=== PATIENT | female | born 1985 | race Caucasian/White ===

== ENCOUNTER 2019-02-25 02:55 | Outpatient (CLI) | payer OTHER ==
[2019-02-25 03:43] VITALS: BP 125/85; PULSE 101; RESP 18; TEMP 98.4
--- NOTE | 2019-02-25 05:04 | P.MSEPDOC ---
Presenting Problems - Arrival Data Date of Arrival on Unit: 02/25/19 Time of Arrival on Unit: 03:04 Mode of Transport: Ambulatory - Complaint OB-Reason for Admission/Chief Complaint: Other Comment: psych eval, med refill Medical History - Information : 6 Para: 3 Term: 3 : 0 Abortions: Spontaneous or Elective: 2 Number of Living Children: 3 - Gestational Age Gestational Age by JETHRO (wks/days): 27 Weeks and 3 Days - History Complications: No Care, Smoker Review of Systems - Review of Systems Constitutional: No problems Breast: No problems ENT: No problems Cardiovascular: No problems Respiratory: No problems Gastrointestinal: No problems Genitourinary: No problems Musculoskeletal: No problems Neurological: No problems Skin: No problems Vital Signs - Temperature Temperature: 98.4 F Temperature Source: Oral - Pulse Right Pulse Rate: 101 Pulse Assessment Method: Pulse Oximetry - Respirations Respiratory Rate: 18 - Blood Pressure Right Arm Blood Pressure: 125/85 Blood Pressure Mean: 98 Blood Pressure Source: Automatic Cuff Medical Screen Scoring (Pre) - Cervical Exam Dilation: Exam Deferred Effacement: Exam Deferred - Uterine Contractions Frequency: N/A Duration: N/A Intensity: N/A - Maternal Vital Signs Maternal Temperature: N/A Maternal Blood Pressure: N/A Signs of Preeclampsia: N/A Maternal Respirations: N/A - Maternal Trauma Maternal Trauma: N/A - Assessment - Baby A Baseline FHR: 140 Heart Rate - NICHD Category: Category I (Normal) = 0 NST: Reactive Position: N/A - Total Score - Baby A Total Score - Baby A: 0 - Total Score - Baby B Total Score - Baby B: 0 - Total Score - Baby C Total Score - Baby C: 0 - Level of Risk - Baby A Level of Risk - Baby A: Low (0-5) - Level of Risk - Baby B Level of Risk - Baby B: Low (0-5) - Level of Risk - Baby C Level of Risk - Baby C: Low (0-5) Medical Screen Scoring (Post) - Cervical Exam Dilation: Exam Deferred Effacement: Exam Deferred - Uterine Contractions Frequency: N/A Duration: N/A Intensity: N/A - Maternal Vital Signs Maternal Temperature: N/A Maternal Blood Pressure: N/A Signs of Preeclampsia: N/A Maternal Respirations: N/A - Maternal Trauma Maternal Trauma: N/A - Assessment - Baby A Heart Rate: 130 Heart Rate - NICHD Category: Category I (Normal) = 0 NST: Reactive - Total Score Total Score - Baby A: 0 Total Score - Baby B: 0 Total Score - Baby C: 0 - Post Treatment Level of Risk Post Treatment Level of Risk - Baby A: Low (0-5) Physician Notification (Post) - Physician Notified Physician Notified Date: 02/25/19 Physician Notified Time: 03:55 Physician/Practitioner Notified:: Dr Rodríguez - Notification Comment Comment: reported on pts c/o wanting to be seen by EPS, wanting a medication refill, having anxiety, wanting community resources. reported that pt currently denies any OB complaints or difficulties. abd is soft. no bleeding or leaking. no cntrx, no cramping. +fm. orders to d/c home, may be seen in ER for further eval if needed Disposition - Disposition OB Disposition: Transfer to other dept./facility, Discharge to home Discharge Date: 02/25/19 Discharge Time: 04:40 I agree with the RN Medical Screening Exam: Yes Physician's MSE Comment: Patient seeking psychiatric support, asking for community resources. No issues [id number] at this time. Will utilize services through the emergency room at this time. Patient denies suicidal or homicidal ideation. Risk & Benefit of care provided described in d/c instruction: Yes Diagnosis: RELATED CONDITIONS, UNSPECIFIED, SECOND TRIMESTER
== END 2019-02-25 04:40 | disposition home or self-care (01) ==
LOC: FBPOP 02:55
PROVIDERS: ATTEND Obstetrics & Gynecology
DX: O26.92 Pregnancy related conditions, unspecified, second trimester (principal); Z3A.27 27 weeks gestation of pregnancy
CPT/HCPCS: 99213

== ENCOUNTER 2019-02-25 04:39 | Emergency (ER) | payer OTHER ==
[2019-02-25 04:46] VITALS: BP 119/86; PULSE 92; TEMP 97.7
--- NOTE | 2019-02-25 05:09 | ED ---
Medical Clearance HPI - General Chief complaint: Medical Clearance Stated complaint: Psych Med Refill Time Seen by Provider: 02/25/19 04:47 Source: patient Mode of arrival: ambulatory - History of Present Illness Initial comments: Dictation was produced using [employer] dictation software. please excuse any grammatical, word or spelling errors. Chief Complaint: 33-year-old female presents with request for Wellbutrin. History of Present Illness: Patient's 33-year-old female she is 29 weeks . She presents emergency department for possible prescription for Wellbutrin. Patient states she's been on for the last 5 years. Patient states she's also been on during this . She states that her BARREL ENDSHAKER ADJUSTER prescribed to her. Patient is log personal stress recently including fostering children after a long case with CPS. She states that her children's father was recently incarcerated. She was up and they've and delivery for surgical contractions. She was discharged from there came to our emergency department for possible prescription. Patient is currently homeless [place] She is currently homeless. The ROS documented in this emergency department record has been reviewed and confirmed by me. Those systems with pertinent positive or negative responses have been documented in the HPI. All other systems are other negative and/or noncontributory. PHYSICAL EXAM: General Impression: Alert and oriented x3, not in acute distress HEENT: Normocephalic atraumatic, extra-ocular movements intact, pupils equal and reactive to light bilaterally, mucous membranes moist. Cardiovascular: Heart regular rate and rhythm, S1&S2 audible, no murmurs, rubs or gallops Chest: Lungs clear to auscultation bilaterally, no rhonchi, no wheeze, no rales Abdomen: Bowel sounds present, abdomen soft, non-tender, non-distended, no organomegaly, uterus appears consistent with stated age Musculoskeletal: Pulses present and equal in all extremities, no peripheral edema Motor: no focal deficits noted Neurological: CN II-XII grossly intact, no focal motor or sensory deficits noted Skin: Intact with no visualized rashes Psych: Normal affect and mood ED course: 33-year-old female who is homeless requesting anxiolytic prescription medication. Signs upon arrival are within acceptable limits. His discussed with patient that Wellbutrin is a class C medication that may currently be harmful to the baby. She is told that I do not fill comfortable prescribing this but she is more than welcome to follow-up with assistant boys track coach to see if they're comfortable prescribing that to her. She also requests that we check her urine. Laboratory evaluation obtained showing no acute processes. D iscussed patient that there is no medication that is completely safe entry anxiety and . Patient understands this. She is given referral to assistant boys track coach. Home medications: Home Medications Medication Instructions Recorded Confirmed Multivitamin [Multivitamins Adult 1 each PO DAILY 02/25/19 02/25/19 Gummies] Potassium 99 mg PO DAILY 02/25/19 02/25/19 Allergies/Adverse reactions: Allergies Allergy/AdvReac Type Severity Reaction Status Date / Time No Known Allergies Allergy Verified 02/25/19 03:29 Review of Systems ROS Statement: Those systems with pertinent positive or pertinent negative responses have been documented in the HPI. ROS Other: All systems not noted in ROS Statement are negative. Past Medical History Additional Past Medical History / Comment(s): lupus, endimetriosis, carpal tunnel, fibromyalgia, memory problems History of Any Multi-Drug Resistant Organisms: None Reported Past Surgical History: Section, Cholecystectomy Past Psychological History: ADD/ADHD, Bipolar, PTSD Smoking Status: Current every day smoker Past Alcohol Use History: Rare Past Drug Use History: None Reported General Exam Limitations: no limitations Course Vital Signs 02/25/19 04:41 Temperature 97.7 F Pulse Rate 92 Respiratory 20 Rate Blood Pressure 119/86 O2 Sat by Pulse 98 Oximetry Medical Decision Making - Lab Data Lab Results 02/25/19 Range/Units 05:15 Urine Color Light Yellow Urine Appearance Cloudy H (Clear) Urine pH 6.5 (5.0-8.0) Ur Specific Reading 1.013 (1.001-1.035) Urine Protein Negative (Negative) Urine Glucose (UA) Negative (Negative) Urine Ketones Negative (Negative) Urine Blood Negative (Negative) Urine Nitrite Negative (Negative) Urine Bilirubin Negative (Negative) Urine Urobilinogen <2.0 (<2.0) mg/dL Ur Leukocyte Esterase Negative (Negative) Urine RBC 1 (0-5) /hpf Ur Squamous Epith Cells 2 (0-4) /hpf Amorphous Sediment Rare H (None) /hpf Urine Bacteria Rare H (None) /hpf Urine Mucus Rare H (None) /hpf Disposition Clinical Impression: Anxiety Disposition: HOME SELF-CARE Condition: Good Instructions (If sedation given, give patient instructions): Anxiety (ED) Is patient prescribed a controlled substance at d/c from ED?: No Referrals: Mona Rodríguez MD [STAFF PHYSICIAN] - 1-2 days Time of Disposition: 05:54
[2019-02-25 05:32] LABS: Amorphous Sediment,Urine Rare /hpf; Appearance,Urine Cloudy (Clear); Bacteria,Urine Rare /hpf; Bilirubin,Urine Negative (Negative); Blood,Urine Negative (Negative); Color,Urine Light Yellow; Glucose,Urine (UA) Negative (Negative); Ketones,Urine Negative (Negative); Leukocyte Esterase,Urine Negative (Negative); Mucus,Urine Rare /hpf; Nitrite,Urine Negative (Negative); PH, Urine 6.5 (5.0-8.0); Protein,Urine Negative (Negative); RBC,Urine 1 /hpf (0-5); Specific Gravity,Urine 1.013 (1.001-1.035); Squamous Epithelial Cell,Urine 2 /hpf (0-4); Urobilinogen,Urine <2.0 mg/dL (<2.0)
[2019-02-25 05:58] VITALS: RESP 18
== END 2019-02-25 05:56 | disposition home or self-care (01) ==
LOC: EC 04:39
DX: O99.343 Other mental disorders complicating pregnancy, third trimester (principal); F41.9 Anxiety disorder, unspecified; O99.333 Smoking (tobacco) complicating pregnancy, third trimester; F17.200 Nicotine dependence, unspecified, uncomplicated; Z59.0 Homelessness; Z98.890 Other specified postprocedural states; Z3A.29 29 weeks gestation of pregnancy
CPT/HCPCS: 81001; 87086; 99213; 99283

== ENCOUNTER 2019-05-14 14:58 | Emergency (ER) | payer OTHER ==
[2019-05-14 15:19] VITALS: RESP 18
[2019-05-14] MEDS ORDERED: MORPHINE SULFATE 4 MG/ML SYRINGE IV STA (16:43)
[2019-05-14] MEDS ORDERED: ONDANSETRON 4 MG/2 ML VIAL IVP STA (16:43)
[2019-05-14] MEDS ORDERED: SODIUM CHLORIDE 0.9% 1,000 ML IV STA (16:43)
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
[2019-05-14 17:31] LABS: Basophils # (A) 0.1 k/uL (0-0.2); Basophils % (A) 1 %; Eosinophils # (A) 0.2 k/uL (0-0.7); Eosinophils % (A) 2 %; HCT 36.4 % (34.0-46.0); HGB 12.2 gm/dL (11.4-16.0); Lymphocytes # (A) 2.9 k/uL (1.0-4.8); Lymphocytes % (A) 25 %; MCH 30.7 pg (25.0-35.0); MCHC 33.5 g/dL (31.0-37.0); MCV 91.8 fL (80.0-100.0); Mean Platelet Volume 5.4; Monocytes # (A) 0.4 k/uL (0-1.0); Monocytes % (A) 4 %; Neutrophils # (A) 7.6 k/uL (1.3-7.7); Neutrophils % (A) 66 %; Platelet Count 358 k/uL (150-450); RBC 3.97 m/uL (3.80-5.40); RDW 13.4 % (11.5-15.5); WBC 11.5 k/uL (3.8-10.6)
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
[2019-05-14 17:37] LABS: ALT 41 U/L (9-52); AST 61 U/L (14-36); African American GFR (CKD) >90 (>60 ml/min/1.73 sqM); Albumin 4.3 g/dL (3.5-5.0); Alkaline Phosphatase 150 U/L (38-126); Amylase 47 U/L (30-110); Anion Gap 9 mmol/L; Blood Urea Nitrogen 10 mg/dL (7-17); Calcium 9.5 mg/dL (8.4-10.2); Carbon Dioxide 25 mmol/L (22-30); Chloride 107 mmol/L (98-107); Creatine Kinase 176 U/L (30-135); Glucose 79 mg/dL (74-99); Magnesium 1.9 mg/dL (1.6-2.3); Potassium 3.6 mmol/L (3.5-5.1); Sodium 141 mmol/L (137-145); Total Bilirubin 0.4 mg/dL (0.2-1.3); Total Protein 8.2 g/dL (6.3-8.2)
[2019-05-14 17:44] LABS: Appearance,Urine Clear (Clear); Bilirubin,Urine Negative (Negative); Blood,Urine Negative (Negative); Color,Urine Light Yellow; Glucose,Urine (UA) Negative (Negative); Ketones,Urine Negative (Negative); Leukocyte Esterase,Urine Negative (Negative); Nitrite,Urine Negative (Negative); PH, Urine 6.5 (5.0-8.0); Protein,Urine Negative (Negative); Specific Gravity,Urine 1.005 (1.001-1.035); Urobilinogen,Urine <2.0 mg/dL (<2.0)
--- NOTE | 2019-05-14 18:17 | CT ---
EXAMINATION TYPE: CT abdomen pelvis wo con DATE OF EXAM: 05/14/2019 COMPARISON: None HISTORY: Pain post [address] DLP: 647.7 mGycm Automated exposure control for dose reduction was used. TECHNIQUE: Helical acquisition of images was performed from the lung bases through the pelvis. FINDINGS: Within the limitations of noncontrast CT the following observations are made. LUNG BASES: No significant abnormality is appreciated. LIVER/GB: No significant abnormality is appreciated. PANCREAS: No significant abnormality is seen. SPLEEN: No significant abnormality is seen. ADRENALS: No significant abnormality is seen. KIDNEYS: No hydronephrosis or hydroureter. Two 1 mm left renal nonobstructing lower pole uroliths are noted. FREE AIR: No free air is visualized. No fluid. RETROPERITONEAL ADENOPATHY: None visualized REPRODUCTIVE ORGANS: No significant abnormality is seen URINARY BLADDER: No significant abnormality is seen. Mild urinary bladder distention noted. PELVIC ADENOPATHY: None visualized. OSSEOUS STRUCTURES: No significant abnormality is seen. BOWEL: No significant abnormality is seen. OTHER: Lower anterior abdominal wall post procedure changes noted, without acute process. IMPRESSION: NO ACUTE PROCESS.
[2019-05-14 19:04] VITALS: BP 117/82; PULSE 79; TEMP 98
== END 2019-05-14 19:04 | disposition home or self-care (01) ==
LOC: EC 14:58
DX: S09.90XA Unspecified injury of head, initial encounter (principal); R10.9 Unspecified abdominal pain; R53.1 Weakness; M54.9 Dorsalgia, unspecified; F31.9 Bipolar disorder, unspecified; F17.200 Nicotine dependence, unspecified, uncomplicated; Z79.899 Other long term (current) drug therapy; Z90.49 Acquired absence of other specified parts of digestive tract; Z98.890 Other specified postprocedural states; Y04.0XXA Assault by unarmed brawl or fight, initial encounter; Y93.89 Activity, other specified; Y92.009 Unspecified place in unspecified non-institutional (private) residence as the place of occurrence of the external cause
CPT/HCPCS: 99284; 96374; 96375; 96361; 36415; 80053; 82150; 82550; 83605; 83690; 83735; 84100; 85025; 81003; 70450; 74176; J2270; J2405